=== PATIENT | male | born 1985 | race Caucasian/White ===

== ENCOUNTER → 2021-10-18 | Outpatient (CLI) | payer OTHER | LOC: US 10:30 | PROVIDERS: ATTEND Internal Medicine Gastroenterology | DX: R10.9 Unspecified abdominal pain (principal); R22.2 Localized swelling, mass and lump, trunk | CPT/HCPCS: 76700; 76857 ==

== ENCOUNTER → 2021-12-06 | Day surgery (SDC) | payer OTHER ==
[~2021-12-06] MED LIST: FENTANYL CITRATE/PF 100MCG/2 ML INJ ONE; MAGNESIUM PO; METOCLOPRAMIDE HCL 10 MG/2ML VIAL ONE; MIDAZOLAM HCL 2 MG/2 ML VIAL ONE; PROBIOTIC PO; PROPOFOL IV EMULSION 10 MG/ML 20 ML VIAL ONE; VITAMIN D PO; ZEGERID OTC 201 EACH PO
[2021-12-06 08:28] VITALS: BP 121/72
== END | disposition home or self-care (01) ==
LOC: OR 05:55
PROVIDERS: ATTEND Internal Medicine Gastroenterology
DX: K29.50 Unspecified chronic gastritis without bleeding (principal); K20.90 Esophagitis, unspecified without bleeding; K44.9 Diaphragmatic hernia without obstruction or gangrene; N20.0 Calculus of kidney; Z01.812 Encounter for preprocedural laboratory examination; Z20.822 Contact with and (suspected) exposure to COVID-19; Z86.16 Personal history of COVID-19
CPT/HCPCS: 43239; C9113; J2250; J2704; J2765; J3010; U0002